=== PATIENT | female | born 1990 | race Caucasian/White ===

== ENCOUNTER 2016-11-05 19:37 | Emergency (ER) | payer MEDICAID, OTHER ==
[~2016-11-05] VITALS: Ht 160 cm; Wt 57.0 kg
[~2016-11-05 19:37] MED LIST: CALCTAB98 PO; FLAG500T PO; LORT7.5T3 PO; PREN0.01 PO; VIST25CA PO
[2016-11-05 19:41] VITALS: BP 124/73; PULSE 94; RESP 15; TEMP 98.3; O2SAT 97
--- NOTE | 2016-11-05 19:48 | PD ---
Physical Exam Date Seen by Provider: Nov 05, 2016 Time Seen by Provider: 19:47 Narrative 26 YOWF 9 WEEKS . NOW WITH VAG BLEEDING AND PELVIC CRAMPING. VS REVIEWED WAITING FOR BED PLACEMENT Data Data Last Documented VS Vital Signs Date Time Temp Pulse Resp B/P Pulse Ox O2 Delivery O2 Flow Rate FiO2 11/05/16 19:41 98.3 94 15 124/73 97 Room Air MDM Supervised Visit with RYLEE: Abundio Melendez Nov 05, 2016 19:48
[2016-11-05 20:35] LABS: AUTOMATED NEUTROPHIL # 5.8 TH/MM3 (1.8-7.7); BASOPHIL % 0.4 % (0.0-2.0); EOSINOPHIL # 0.1 TH/MM3 (0-0.4); EOSINOPHIL % 1.4 % (0.0-4.0); HEMO FLAGS DIFF FINAL; LYMPH % 26.7 % (9.0-44.0); LYMPHOCYTE # 2.4 TH/MM3 (1.0-4.8); MEAN CELL VOLUME 92.6 FL (80.0-100.0); MEAN CORPUSCULAR HEMOGLOBIN 30.9 PG (27.0-34.0); MEAN CORPUSCULAR HGB CONC 33.4 % (32.0-36.0); MONO % 7.7 % (0.0-8.0); NEUT % 63.8 % (16.0-70.0); PLATELET COUNT 229 TH/MM3 (150-450); RED BLOOD COUNT 4.86 MIL/MM3 (4.00-5.30); RED CELL DISTRIBUTION WIDTH 13.7 % (11.6-17.2)
[2016-11-05 20:37] LABS: BACTERIA, URINE MANY /hpf; BLOOD, URINE NEG (NEG); COMMENT (UR) CULTURE INDICATED; CULTURE IF INDICATED CULTURE INDICATED; GLUCOSE,URINE NEG (NEG); KETONE, URINE NEG (NEG); MUCUS URINE MANY /lpf (OCC); NITRITE,URINE NEG (NEG); SQUAMOUS EPITHELIAL CELL URINE 4 /hpf (0-5); URINE COLOR YELLOW (YELLW/STRAW)
[2016-11-05 20:52] LABS: BICARBONATE 24.6 MEQ/L (21.0-32.0); POTASSIUM 3.3 MEQ/L (3.5-5.1)
--- NOTE | 2016-11-05 21:57 | RADRPT ---
EXAM DATE/TIME: 11/05/2016 20:33 [facility] COMPARISON: US PELVIS (QUEST PREG/ECTOPIC) W/TRANSVAG, May 09, 2015, 22:58. INDICATIONS : Ectopic. LAB(S): Beta-hCG: MEDICAL HISTORY : . Vaginal bleeding. Pelvic cramping. SURGICAL HISTORY : None. ENCOUNTER: Subsequent ACUITY: 1 day PAIN SCORE: 2/10 LOCATION: Bilateral pelvis MEASUREMENTS: TRANSVAGINAL: UTERUS: 10.1 x 8.2 x 6.0 cm ENDOMETRIAL STRIPE: 14 mm RIGHT OVARY: 5.0 x 4.2 x 1.8 cm LEFT OVARY: 3.2 x 2.4 x 1.3 cm FREE FLUID: Yes CROWN RUMP LENGTH: 1.2 cm = 7 WKS 3 DAYS FHR: 78 BPM FINDINGS: UTERUS: There is an intrauterine gestation measuring 7 weeks 3 days by crown rump length. cardiac activ ity is identified although it does appear slower than normal. There is a 0.9 x 0.9 x 0.7 cm hypoechoi c area seen at the periphery of the gestational sac which may be a small subchorionic hemorrhage. RIGHT OVARY: There is a 1.8 x 1.8 x 1.2 cm complex mass the right ovary likely related to the corpus luteum. LEFT OVARY: Ovary contains no mass or significant cystic lesion. MISCELLANEOUS: There is minimal free fluid. CONCLUSION: 1. Single live IUP at 7 weeks 3 days. 2. Possible small 0.9 cm subchorionic hemorrhage. 3. cardiac activity is slower than typically seen. 4. Complex 1.8 cm mass of the right ovary likely related to the corpus luteum. Familia Donaldson MD on November 05, 2016 at 21:51 Board Certified Radiologist. This report was verified electronically.
[2016-11-05] MEDS ORDERED: MACR100C2 PO (22:04)
--- NOTE | 2016-11-05 22:04 | PD ---
HPI Chief Complaint: Related Problem Time Seen by Provider: 21:34 Travel History International Travel<30 days: No Contact w/Intl Traveler<30days: No Traveled to known affect area: No History of Present Illness HPI 26-year-old female 4 para to believed to be 7 weeks arrives with vaginal spotting today. Minimal abdominal cramping is also reported. No fever. No vaginal discharge. Duration of spotting about 1 day. No history of ectopic. One prior miscarriage. PFSH Past Medical History Diminished Hearing: No Immunizations Current: No ?: LMP: 6-16-17 : 3 Para: 2 Miscarriage: 0 : 0 Past Surgical History Section: No Social History Alcohol Use: No Tobacco Use: Yes (1/4 pack a day ) Substance Use: No Allergies-Medications (Allergen,Severity, Reaction): Coded Allergies: No Known Allergies (Verified , 11/05/16) Reported Meds & Prescriptions Reported Meds & Active Scripts Active Macrobid (Nitrofurantoin Monoh/Nitrofur Macro) 100 Mg Cap 100 Mg PO BID Reported + Complete Multi 18-0.8 & 290 mg ( Mv & Min W/Fe Prot Francisco) 1 Bautista Bautista 1 Tab PO DAILY Review of Systems Except as stated in HPI: all other systems reviewed are Neg Physical Exam Narrative GENERAL: 26-year-old female well-nourished well-developed pleasant SKIN: Warm and dry. HEAD: Atraumatic. Normocephalic. EYES: Pupils equal and round. No scleral icterus. No injection or drainage. ENT: No nasal bleeding or discharge. Mucous membranes pink and moist. NECK: Trachea midline. No JVD. CARDIOVASCULAR: Regular rate and rhythm. RESPIRATORY: No accessory muscle use. Clear to auscultation. Breath sounds equal bilaterally. GASTROINTESTINAL: Abdomen soft, non-tender, nondistended. Hepatic and splenic margins not palpable. MUSCULOSKELETAL: Extremities without clubbing, cyanosis, or edema. No obvious deformities. NEUROLOGICAL: Awake and alert. No obvious cranial nerve deficits. Motor grossly within normal limits. Five out of 5 muscle strength in the arms and legs. Normal speech. PSYCHIATRIC: Appropriate mood and affect; insight and judgment normal. Data Data Last Documented VS Vital Signs Date Time Temp Pulse Resp B/P Pulse Ox O2 Delivery O2 Flow Rate FiO2 11/05/16 19:41 98.3 94 15 124/73 97 Room Air Vital signs reviewed Orders Beta Hcg (Quant/Titer) (11/05/16 19:49) Complete Blood Count With Diff (11/05/16 19:49) Basic Metabolic Panel (Bmp) (11/05/16 19:49) Urinalysis - C+S If Indicated (11/05/16 19:49) Ed Urine Pregnancytest Poc (11/05/16 19:49) Us Pelvis (Ques Pr/Ect)W Trans (11/05/16 ) Urine Culture (11/05/16 20:00) Labs Laboratory Tests Test 11/05/16 20:00 White Blood Count 9.0 TH/MM3 Red Blood Count 4.86 MIL/MM3 Hemoglobin 15.0 GM/DL Hematocrit 45.0 % Mean Corpuscular Volume 92.6 FL Mean Corpuscular Hemoglobin 30.9 PG Mean Corpuscular Hemoglobin 33.4 % Concent Red Cell Distribution Width 13.7 % Platelet Count 229 TH/MM3 Mean Platelet Volume 8.6 FL Neutrophils (%) (Auto) 63.8 % Lymphocytes (%) (Auto) 26.7 % Monocytes (%) (Auto) 7.7 % Eosinophils (%) (Auto) 1.4 % Basophils (%) (Auto) 0.4 % Neutrophils # (Auto) 5.8 TH/MM3 Lymphocytes # (Auto) 2.4 TH/MM3 Monocytes # (Auto) 0.7 TH/MM3 Eosinophils # (Auto) 0.1 TH/MM3 Basophils # (Auto) 0.0 TH/MM3 CBC Comment DIFF FINAL Differential Comment Urine Color YELLOW Urine Turbidity CLEAR Urine pH 6.0 Urine Specific [place] 1.027 Urine Protein TRACE mg/dL Urine Glucose (UA) NEG mg/dL Urine Ketones NEG mg/dL Urine Occult Blood NEG Urine Nitrite NEG Urine Bilirubin NEG Urine Urobilinogen LESS THAN 2.0 MG/DL Urine Leukocyte Esterase SMALL Urine RBC LESS THAN 1 /hpf Urine WBC 1 /hpf Urine Squamous Epithelial 4 /hpf Cells Urine Bacteria MANY /hpf Urine Mucus MANY /lpf Microscopic Urinalysis Comment CULTURE INDICATED Sodium Level 137 MEQ/L Potassium Level 3.3 MEQ/L Chloride Level 106 MEQ/L Carbon Dioxide Level 24.6 MEQ/L Anion Gap 6 MEQ/L Blood Urea Nitrogen 7 MG/DL Creatinine 0.49 MG/DL Estimat Glomerular Filtration 151 ML/MIN Rate Random Glucose 78 MG/DL Calcium Level 8.5 MG/DL Human Chorionic Gonadotropin, [id number] MIU/ML Quant MDM Medical Decision Making Medical Screen Exam Complete: Yes Emergency Medical Condition: Yes Medical Record Reviewed: Yes Differential Diagnosis IUP, UTI, ectopic , ov torsion, appendicitis, TOA, cervicitis, BV, Trichomoniasis, ov cyst, hernia, mittelschmerz, pain from menstruation Narrative Course CBC & BMP Diagram 11/05/16 20:00 Last 24 hours Impressions Pelvis Ultrasound 11/05/16 0000 Signed Impressions: Service Date/Time: Thursday, November 05, 2016 20:33 - CONCLUSION: 1. Single live IUP at 7 weeks 3 days. 2. Possible small 0.9 cm subchorionic hemorrhage. 3. cardiac activity is slower than typically seen. 4. Complex 1.8 cm mass of the right ovary likely related to the corpus luteum. Familia Donaldson MD The patient is resting comfortably and feels better, is alert and in no distress. The patients results and examination findings were discussed. The repeat examination is unremarkable and benign. The history, exam, diagnostic testing, and current condition do not suggest any significant pathology to warrant further testing, continued ED treatment, admission, or surgical evaluation at this point. The vital signs have been stable. The patient does not have uncontrollable pain, intractable vomiting, or other significant symptoms. The patient's condition is stable and appropriate for discharge. The patient will pursue further outpatient evaluation with a primary care physician or other designated or consulting physician as indicated in the discharge instructions. The patient expressed understanding and was agreeable with this plan. The patient might have findings consistent with asymptomatic bacteriuria. She was called at 12:13 PM on 11/06/2016. At that time she agreed to arrive to the ER to pear picker a prescription. This information was relayed to the charge nurse at 12:15 PM 11/06/16. Diagnosis Primary Impression: Threatened Referrals: Rupal Cortes MD 2 days Additional Instructions: You have a choice when it comes to health care, and we are glad that you chose [facility]. Hopefully, we have met your expectations on today's visit. You are welcome to return to [facility] at any time, as we are committed to meeting the health care needs of our community. Med/Other Pt SpecificInfo: Prescription(s) given Scripts Nitrofurantoin Monohydrate Macrocrystals (Macrobid)100 Mg [id number] Mg PO BID #10 CAP Ref 0 Prov:Geoff Garcia MD 11/06/16 Disposition: 01 DISCHARGE HOME Condition: Stable Geoff Garcia MD Nov 05, 2016 22:04
[2016-11-05] MEDS ORDERED: PREN1PAK9 PO (22:22)
[2016-11-06] MEDS ORDERED: MACR100C2 PO (12:15)
== END 2016-11-05 22:49 | disposition home or self-care (01) ==
LOC: NEPD 19:37
DX: O20.0 Threatened abortion (principal); Z3A.01 Less than 8 weeks gestation of pregnancy
CPT/HCPCS: 76700; 76817; 80048; 81001; 84702; 84703; 85025; 87086; 99284